=== PATIENT | female | born 1940 | race Caucasian/White ===

== ENCOUNTER 2017-01-26 08:00 | Outpatient (CLI) | payer BC | END 2017-01-26 08:01 | disposition home or self-care (01) | LOC: BICMAMMO 08:00 | PROVIDERS: ATTEND Family Medicine | DX: M81.0 Age-related osteoporosis without current pathological fracture (principal); M85.88 Other specified disorders of bone density and structure, other site | CPT/HCPCS: 77080 ==

== ENCOUNTER 2018-01-27 08:10 | Outpatient (CLI) | payer BC ==
--- NOTE | 2018-01-27 11:11 | BD ---
DEXA BONE DENSITY STUDY: Date: 01/27/18 HISTORY: Postmenopausal. FINDINGS: Lumbar Spine: BMD (g/cm2) L1 0.643 T-Score: -3.2 L2 0.661 T-Score: -3.3 L3 0.812 T-Score: -2.5 L4 1.002 T-Score: -0.5 Total 0.792 T-Score: -2.3 Left Femoral Neck: 0.682 T-Score: -1.5 Total Femur: 0.831 T-Score: -0.9 IMPRESSION: 1. Osteopenia of the lumbar spine. The T-Score values border on osteoporosis range with L1 and L2 fa lling within the osteoporosis range. 2. Osteopenia of the left femoral neck. 3. 10 year fracture risk for major osteoporotic fracture is 13% and for hip fracture is 3%. These fr acture probabilities are calculated for an untreated patient. POS: [facility]
== END 2018-01-27 08:11 | disposition home or self-care (01) ==
LOC: BICMAMMO 08:10
PROVIDERS: ATTEND Family Medicine
DX: Z12.31 Encounter for screening mammogram for malignant neoplasm of breast (principal); Z13.820 Encounter for screening for osteoporosis; M85.89 Other specified disorders of bone density and structure, multiple sites
CPT/HCPCS: 77063; 77067; 77080

== ENCOUNTER 2021-01-21 09:20 | Outpatient (CLI) | payer BC | END 2021-01-21 09:21 | disposition home or self-care (01) | LOC: BICMAMMO 09:20 | PROVIDERS: ATTEND Family Medicine | DX: M81.6 Localized osteoporosis [Lequesne] (principal); M85.851 Other specified disorders of bone density and structure, right thigh; M85.852 Other specified disorders of bone density and structure, left thigh | CPT/HCPCS: 77080 ==

== ENCOUNTER 2021-03-16 07:24 | Inpatient (IN) | payer MEDICARE, BC ==
[2021-03-16 09:47] LABS: #Lymphocytes 0.8 thou/uL (1.20-3.40); #Monocytes 0.2 thou/uL (0.11-0.59); %Basophils 0.7 % (0.0-1.0); %Eosinophils 0.2 % (0.0-10.0); %Lymphocytes 25.1 % (21.0-51.0); %Monocytes 5.7 % (0.0-10.0); %Neutrophils 68.3 % (42.0-75.0); Hemoglobin 14.3 g/dL (12.0-16.0); Mean Corpuscular HGB CONC 32.2 g/dL (32.0-36.0); Mean Corpuscular Hemoglobin 30.4 pg (27.0-31.0); Mean Corpuscular Volume 94.6 fL (78.0-98.0); Mean Platelet Volume 7.4 fL (7.4-10.4); Platelet Count 145 thou/uL (130-400); RBC Distribution Width 11.9 % (11.5-14.5); Red Blood Cell (RBC) Count 4.69 mill/uL (4.20-5.40)
[2021-03-16] MEDS ORDERED: Iopamidol 370 76% 100 ML VIAL ONE (10:17)
[2021-03-16 10:18] LABS: ALT (SGPT) 34 U/L (8-55); AST (SGOT) 72 U/L (5-34); Albumin 3.5 g/dL (3.4-4.8); Alkaline Phosphatase 73 U/L (40-110); Anion Gap 14 mmol/L (10-20); BUN (Urea Nitrogen) 9 mg/dL (9.8-20.1); Bilirubin, Total 0.4 mg/dL (0.2-1.2); Calc. Creatinine Clearance 0 mL/min (70-130); Calcium 8.1 mg/dL (7.8-10.44); Carbon Dioxide 24 mmol/L (23-31); Chloride 99 mmol/L (98-107); Globulin 2.8 g/dL (2.4-3.5); Glucose 123 mg/dL (83-110); Magnesium 2.1 mg/dL (1.6-2.6); Protein, Total 6.3 g/dL (5.8-8.1); Sodium 133 mmol/L (136-145)
[2021-03-16] MEDS ORDERED: Ondansetron PF 4 MG/2 ML Vial IVP PRN (12:28)
[2021-03-16] MEDS ORDERED: Bisacodyl 10 MG SUPP PR PRN (12:28)
[2021-03-16] MEDS ORDERED: Dexamethasone 4 mg/ml Vial SLOW IVP SCH (12:45)
[2021-03-16] MEDS ORDERED: Albuterol 200 PUFF (6.7GM INHALER) ONE (13:08)
[2021-03-16] MEDS ORDERED: REMDESIVIR 200 MG in Sodium Chloride 0.9% 250 ML 210 ML IV SCH (14:00)
[2021-03-16 14:06] LABS: SARS-CoV-2 NAA Rapid Test DETECTED (NotDetected)
[2021-03-16] MEDS: Dexamethasone 4 mg/ml Vial SLOW IVP SCH (20:00)
[2021-03-16] MEDS: Famotidine 20 MG TAB PO SCH (20:00)
[2021-03-16] MEDS: Albuterol 200 PUFF (6.7GM INHALER) INH SCH (20:00)
[2021-03-17] MEDS: Albuterol 200 PUFF (6.7GM INHALER) INH SCH ×4 (01:06→20:02)
[2021-03-17] MEDS: Guaifenesin DM 100-10/5 ML UDCUP PO PRN ×2 (04:25→10:58)
[2021-03-17 06:55] LABS: #Lymphocytes 0.7 thou/uL (1.20-3.40); #Monocytes 0.2 thou/uL (0.11-0.59); #Neutrophils 2.7 thou/uL (1.40-6.50); %Eosinophils 0.1 % (0.0-10.0); %Lymphocytes 19.4 % (21.0-51.0); %Monocytes 6.3 % (0.0-10.0); %Neutrophils 74.2 % (42.0-75.0); Mean Corpuscular HGB CONC 32.4 g/dL (32.0-36.0); Mean Corpuscular Hemoglobin 30.4 pg (27.0-31.0); Mean Corpuscular Volume 93.7 fL (78.0-98.0); Mean Platelet Volume 7.6 fL (7.4-10.4); Platelet Count 163 thou/uL (130-400); RBC Distribution Width 11.9 % (11.5-14.5); Red Blood Cell (RBC) Count 4.62 mill/uL (4.20-5.40); White Blood Cell (WBC) Count 3.6 thou/uL (4.8-10.8)
[2021-03-17 07:34] LABS: ALT (SGPT) 34 U/L (8-55); AST (SGOT) 72 U/L (5-34); Albumin 3.2 g/dL (3.4-4.8); Alkaline Phosphatase 68 U/L (40-110); Anion Gap 17 mmol/L (10-20); BUN (Urea Nitrogen) 12 mg/dL (9.8-20.1); Bilirubin, Total 0.3 mg/dL (0.2-1.2); Calc. Creatinine Clearance 44 mL/min (70-130); Calcium 8.4 mg/dL (7.8-10.44); Carbon Dioxide 16 mmol/L (23-31); Chloride 103 mmol/L (98-107); Globulin 3.5 g/dL (2.4-3.5); Glucose 211 mg/dL (83-110); Potassium 4.1 mmol/L (3.5-5.1); Protein, Total 6.7 g/dL (5.8-8.1); Sodium 132 mmol/L (136-145)
[2021-03-17] MEDS: Ascorbic Acid 500 mg Chewable Tablet PO SCH (08:35)
[2021-03-17] MEDS: Famotidine 20 MG TAB PO SCH ×2 (08:35→20:02)
[2021-03-17] MEDS: Zinc Sulfate 220 MG CAP PO SCH (08:35)
[2021-03-17] MEDS: Dexamethasone 4 mg/ml Vial SLOW IVP SCH ×2 (08:36→20:02)
[2021-03-17] MEDS ORDERED: Enoxaparin Sodium 40 MG/0.4 ML SYRINGE SC SCH (09:00)
[2021-03-17] MEDS: REMDESIVIR 100 MG in Sodium Chloride 0.9% 250 ML 230 ML IV SCH (11:19)
[2021-03-17] MEDS ORDERED: Dexamethasone 4 mg/ml Vial ONE (19:38)
[2021-03-17] MEDS: Enoxaparin Sodium 40 MG/0.4 ML SYRINGE SC SCH (20:02)
[2021-03-18] MEDS: Albuterol 200 PUFF (6.7GM INHALER) INH SCH ×4 (01:00→20:37)
[2021-03-18 05:00] LABS: Actual Bicarbonate (HCO3a) 20.8 mEq/L (22-28); Base Excess (BEa) -2.2 mEq/L (-2.0 to +3.0); CO2 Tension 30.9 mmHg (35.0-45.0); Calcium, Ionized (arterial) 1.14 mmol/L (1.12-1.30); Carboxyhemoglobin (COHb) 0.5 gm% (0.0-3.0); Hemoglobin (Hb) 14.7 g/dL (12.0-16.0); Potassium - ABG Lab 3.72 mmol/L (3.70-5.30); pH, Arterial 7.45 (7.35-7.45)
[2021-03-18 05:02] LABS: O2 Tension (PaO2), arterial 56.9 mmHg (> 60.0)
[2021-03-18 05:03] LABS: ALV-art Gradient 367.925 mmHg (0-20); Puncture Site RBA
[2021-03-18] MEDS: REMDESIVIR 100 MG in Sodium Chloride 0.9% 250 ML 230 ML IV SCH (08:38)
[2021-03-18] MEDS: Enoxaparin Sodium 40 MG/0.4 ML SYRINGE SC SCH ×2 (08:39→20:13)
[2021-03-18] MEDS: Guaifenesin DM 100-10/5 ML UDCUP PO PRN ×2 (08:39→20:15)
[2021-03-18] MEDS: Acetaminophen 325 MG TAB PO PRN ×2 (08:39→13:09)
[2021-03-18] MEDS: Ascorbic Acid 500 mg Chewable Tablet PO SCH (08:39)
[2021-03-18] MEDS: Famotidine 20 MG TAB PO SCH ×2 (08:39→20:12)
[2021-03-18] MEDS: BARICITINIB 2 MG TAB PO SCH (08:39)
[2021-03-18] MEDS: guaiFENesin/DM ER PO PRN ×2 (08:40→20:12)
[2021-03-18] MEDS: Dexamethasone 4 mg/ml Vial SLOW IVP SCH ×2 (08:40→20:12)
[2021-03-18] MEDS: Zinc Sulfate 220 MG CAP PO SCH (08:41)
[2021-03-19] MEDS: Acetaminophen 325 MG TAB PO PRN ×3 (00:59→22:42)
[2021-03-19] MEDS: Albuterol 200 PUFF (6.7GM INHALER) INH SCH ×4 (01:00→18:09)
[2021-03-19 07:28] LABS: ALT (SGPT) 34 U/L (8-55); AST (SGOT) 56 U/L (5-34); Alkaline Phosphatase 102 U/L (40-110); Anion Gap 12 mmol/L (10-20); BUN (Urea Nitrogen) 26 mg/dL (9.8-20.1); Bilirubin, Total 0.4 mg/dL (0.2-1.2); Calc. Creatinine Clearance 42 mL/min (70-130); Calcium 8.4 mg/dL (7.8-10.44); Carbon Dioxide 21 mmol/L (23-31); Chloride 105 mmol/L (98-107); Globulin 2.9 g/dL (2.4-3.5); Glucose 377 mg/dL (83-110); Potassium 3.9 mmol/L (3.5-5.1); Protein, Total 5.9 g/dL (5.8-8.1); Sodium 134 mmol/L (136-145)
[2021-03-19 07:38] LABS: #Monocytes 0.5 thou/uL (0.11-0.59); #Neutrophils 6.8 thou/uL (1.40-6.50); %Eosinophils 0.1 % (0.0-10.0); %Lymphocytes 11.8 % (21.0-51.0); %Monocytes 6.4 % (0.0-10.0); %Neutrophils 81.7 % (42.0-75.0); Hemoglobin 13.9 g/dL (12.0-16.0); Mean Corpuscular HGB CONC 34.4 g/dL (32.0-36.0); Mean Corpuscular Hemoglobin 31.8 pg (27.0-31.0); Mean Corpuscular Volume 92.3 fL (78.0-98.0); Mean Platelet Volume 7.7 fL (7.4-10.4); Platelet Count 224 thou/uL (130-400); RBC Distribution Width 12.1 % (11.5-14.5); Red Blood Cell (RBC) Count 4.36 mill/uL (4.20-5.40); White Blood Cell (WBC) Count 8.3 thou/uL (4.8-10.8)
[2021-03-19] MEDS ORDERED: Dextrose 5% in Water 1,000 ML IV PRN (08:51)
[2021-03-19] MEDS: Zinc Sulfate 220 MG CAP PO SCH (09:06)
[2021-03-19] MEDS: Famotidine 20 MG TAB PO SCH ×2 (09:06→20:25)
[2021-03-19] MEDS: Ascorbic Acid 500 mg Chewable Tablet PO SCH (09:06)
[2021-03-19] MEDS: Enoxaparin Sodium 40 MG/0.4 ML SYRINGE SC SCH ×2 (09:07→20:25)
[2021-03-19] MEDS: BARICITINIB 2 MG TAB PO SCH (09:08)
[2021-03-19] MEDS: Dexamethasone 4 mg/ml Vial SLOW IVP SCH (09:09)
[2021-03-19] MEDS: Lantus 1000 UNITS/10 ML VIAL SC SCH ×2 (10:17→20:25)
[2021-03-19] MEDS: REMDESIVIR 100 MG in Sodium Chloride 0.9% 250 ML 230 ML IV SCH (10:18)
[2021-03-19] MEDS: HumaLOG 300 UNITS/3 ML VIAL SC PRN ×4 (10:19→20:27)
[2021-03-19] MEDS ORDERED: Melatonin 3 MG TAB PO SCH (20:52)
[2021-03-20] MEDS: Albuterol 200 PUFF (6.7GM INHALER) INH SCH ×4 (01:07→17:56)
[2021-03-20] MEDS: HumaLOG 300 UNITS/3 ML VIAL SC PRN ×5 (05:48→21:28)
[2021-03-20] MEDS: BARICITINIB 2 MG TAB PO SCH (08:57)
[2021-03-20] MEDS: Famotidine 20 MG TAB PO SCH ×2 (08:57→21:24)
[2021-03-20] MEDS: Enoxaparin Sodium 40 MG/0.4 ML SYRINGE SC SCH ×2 (08:58→21:25)
[2021-03-20] MEDS: Dexamethasone 4 mg/ml Vial SLOW IVP SCH (08:58)
[2021-03-20] MEDS: Ascorbic Acid 500 mg Chewable Tablet PO SCH (08:58)
[2021-03-20] MEDS: Zinc Sulfate 220 MG CAP PO SCH (08:58)
[2021-03-20] MEDS: Lantus 1000 UNITS/10 ML VIAL SC SCH ×2 (08:59→21:28)
[2021-03-20] MEDS: REMDESIVIR 100 MG in Sodium Chloride 0.9% 250 ML 230 ML IV SCH (10:50)
[2021-03-20] MEDS ORDERED: Melatonin 3 MG TAB PO SCH (18:46)
[2021-03-20] MEDS ORDERED: Docusate 100 MG CAP PO SCH (18:47)
[2021-03-20] MEDS: Guaifenesin DM 100-10/5 ML UDCUP PO PRN (21:27)
[2021-03-21] MEDS: Albuterol 200 PUFF (6.7GM INHALER) INH SCH ×4 (01:40→18:57)
[2021-03-21 07:35] LABS: #Lymphocytes 0.9 thou/uL (1.20-3.40); #Monocytes 0.6 thou/uL (0.11-0.59); #Neutrophils 6.7 thou/uL (1.40-6.50); %Eosinophils 0.1 % (0.0-10.0); %Lymphocytes 10.5 % (21.0-51.0); %Monocytes 7.2 % (0.0-10.0); %Neutrophils 82.2 % (42.0-75.0); Hemoglobin 14.1 g/dL (12.0-16.0); Mean Corpuscular HGB CONC 33.1 g/dL (32.0-36.0); Mean Corpuscular Volume 93.6 fL (78.0-98.0); Mean Platelet Volume 7.4 fL (7.4-10.4); Platelet Count 276 thou/uL (130-400); RBC Distribution Width 11.9 % (11.5-14.5); Red Blood Cell (RBC) Count 4.55 mill/uL (4.20-5.40); White Blood Cell (WBC) Count 8.2 thou/uL (4.8-10.8)
[2021-03-21 07:44] LABS: ALT (SGPT) 30 U/L (8-55); AST (SGOT) 44 U/L (5-34); Albumin 2.8 g/dL (3.4-4.8); Alkaline Phosphatase 111 U/L (40-110); Anion Gap 13 mmol/L (10-20); BUN (Urea Nitrogen) 21 mg/dL (9.8-20.1); Bilirubin, Total 0.7 mg/dL (0.2-1.2); Calc. Creatinine Clearance 45 mL/min (70-130); Calcium 8.2 mg/dL (7.8-10.44); Carbon Dioxide 20 mmol/L (23-31); Chloride 104 mmol/L (98-107); Globulin 2.9 g/dL (2.4-3.5); Glucose 273 mg/dL (83-110); Potassium 3.2 mmol/L (3.5-5.1); Protein, Total 5.7 g/dL (5.8-8.1); Sodium 134 mmol/L (136-145)
[2021-03-21] MEDS: Zinc Sulfate 220 MG CAP PO SCH (09:34)
[2021-03-21] MEDS: Famotidine 20 MG TAB PO SCH ×2 (09:35→22:11)
[2021-03-21] MEDS: BARICITINIB 2 MG TAB PO SCH (09:35)
[2021-03-21] MEDS: Ascorbic Acid 500 mg Chewable Tablet PO SCH (09:35)
[2021-03-21] MEDS: Dexamethasone 4 mg/ml Vial SLOW IVP SCH (09:36)
[2021-03-21] MEDS: Enoxaparin Sodium 40 MG/0.4 ML SYRINGE SC SCH ×2 (09:40→22:12)
[2021-03-21] MEDS: Lantus 1000 UNITS/10 ML VIAL SC SCH ×2 (09:41→22:10)
[2021-03-21] MEDS: Acetaminophen 325 MG TAB PO PRN (11:25)
[2021-03-21] MEDS: HumaLOG 300 UNITS/3 ML VIAL SC PRN ×2 (13:23→17:11)
[2021-03-21] MEDS ORDERED: BARICITINIB 2 MG TAB PO SCH (14:00)
[2021-03-21] MEDS: Potassium Chloride 20 MEQ TAB PO SCH ×2 (17:07→22:11)
[2021-03-21] MEDS: Guaifenesin DM 100-10/5 ML UDCUP PO PRN ×2 (17:13→22:11)
[2021-03-21] MEDS ORDERED: Melatonin 3 MG TAB PO SCH (22:30)
[2021-03-22] MEDS: Albuterol 200 PUFF (6.7GM INHALER) INH SCH ×5 (01:38→19:18)
[2021-03-22] MEDS: Guaifenesin DM 100-10/5 ML UDCUP PO PRN ×3 (06:16→21:37)
[2021-03-22] MEDS: Acetaminophen 325 MG TAB PO PRN ×3 (06:16→21:38)
[2021-03-22] MEDS: Ascorbic Acid 500 mg Chewable Tablet PO SCH (09:24)
[2021-03-22] MEDS: Zinc Sulfate 220 MG CAP PO SCH (09:24)
[2021-03-22] MEDS: BARICITINIB 2 MG TAB PO SCH (09:24)
[2021-03-22] MEDS: Famotidine 20 MG TAB PO SCH ×2 (09:24→21:37)
[2021-03-22] MEDS: Enoxaparin Sodium 40 MG/0.4 ML SYRINGE SC SCH ×2 (09:25→21:38)
[2021-03-22] MEDS: Dexamethasone 4 mg/ml Vial SLOW IVP SCH (09:25)
[2021-03-22] MEDS: Lantus 1000 UNITS/10 ML VIAL SC SCH ×2 (09:26→21:38)
[2021-03-22] MEDS: HumaLOG 300 UNITS/3 ML VIAL SC PRN ×2 (12:54→17:48)
[2021-03-22] MEDS ORDERED: Melatonin 3 MG TAB PO SCH (20:30)
[2021-03-23] MEDS: Albuterol 200 PUFF (6.7GM INHALER) INH SCH ×4 (02:16→19:42)
[2021-03-23] MEDS: Acetaminophen 325 MG TAB PO PRN ×4 (04:28→19:37)
[2021-03-23] MEDS: Guaifenesin DM 100-10/5 ML UDCUP PO PRN ×3 (04:28→19:37)
[2021-03-23] MEDS: Dexamethasone 4 mg/ml Vial SLOW IVP SCH (09:17)
[2021-03-23] MEDS: Zinc Sulfate 220 MG CAP PO SCH (09:18)
[2021-03-23] MEDS: Lantus 1000 UNITS/10 ML VIAL SC SCH ×2 (09:18→21:23)
[2021-03-23] MEDS: Ascorbic Acid 500 mg Chewable Tablet PO SCH (09:19)
[2021-03-23] MEDS: Famotidine 20 MG TAB PO SCH (09:19)
[2021-03-23] MEDS: BARICITINIB 2 MG TAB PO SCH (09:19)
[2021-03-23] MEDS: Enoxaparin Sodium 40 MG/0.4 ML SYRINGE SC SCH ×2 (09:19→21:24)
[2021-03-23] MEDS: HumaLOG 300 UNITS/3 ML VIAL SC PRN (12:35)
[2021-03-23] MEDS ORDERED: Mag-Al Plus 1200 MG/1200 MG/120 MG/30 ML UDCUP PO PRN (18:40)
[2021-03-23] MEDS ORDERED: Melatonin 3 MG TAB PO SCH (20:15)
[2021-03-23] MEDS: Senokot S 8.6-50 MG TAB PO SCH (21:23)
[2021-03-23] MEDS ORDERED: Lorazepam 0.5 MG TAB PO SCH (23:30)
[2021-03-24] MEDS: Albuterol 200 PUFF (6.7GM INHALER) INH SCH ×4 (03:09→20:29)
[2021-03-24] MEDS: Guaifenesin DM 100-10/5 ML UDCUP PO PRN ×3 (03:10→18:40)
[2021-03-24] MEDS: Acetaminophen 325 MG TAB PO PRN (03:10)
[2021-03-24 06:40] LABS: #Lymphocytes 0.6 thou/uL (1.20-3.40); #Monocytes 0.3 thou/uL (0.11-0.59); %Basophils 0.8 % (0.0-1.0); %Eosinophils 0.4 % (0.0-10.0); %Lymphocytes 11.9 % (21.0-51.0); %Monocytes 6.4 % (0.0-10.0); %Neutrophils 80.5 % (42.0-75.0); Hemoglobin 13.6 g/dL (12.0-16.0); Mean Corpuscular HGB CONC 34.8 g/dL (32.0-36.0); Mean Corpuscular Hemoglobin 32.3 pg (27.0-31.0); Mean Corpuscular Volume 92.9 fL (78.0-98.0); Mean Platelet Volume 7.3 fL (7.4-10.4); Platelet Count 263 thou/uL (130-400); RBC Distribution Width 11.9 % (11.5-14.5); Red Blood Cell (RBC) Count 4.19 mill/uL (4.20-5.40)
[2021-03-24 06:58] LABS: Phosphorus 3.9 mg/dL (2.3-4.7)
[2021-03-24 07:00] LABS: ALT (SGPT) 29 U/L (8-55); AST (SGOT) 37 U/L (5-34); Albumin 2.7 g/dL (3.4-4.8); Alkaline Phosphatase 102 U/L (40-110); Anion Gap 9 mmol/L (10-20); BUN (Urea Nitrogen) 15 mg/dL (9.8-20.1); Bilirubin, Direct 0.4 mg/dL (0.1-0.3); Bilirubin, Total 0.9 mg/dL (0.2-1.2); Calc. Creatinine Clearance 53 mL/min (70-130); Calcium 8.2 mg/dL (7.8-10.44); Carbon Dioxide 25 mmol/L (23-31); Chloride 104 mmol/L (98-107); Glucose 77 mg/dL (83-110); Magnesium 2.3 mg/dL (1.6-2.6); Potassium 3.7 mmol/L (3.5-5.1); Protein, Total 5.6 g/dL (5.8-8.1); Sodium 134 mmol/L (136-145)
[2021-03-24] MEDS: Ascorbic Acid 500 mg Chewable Tablet PO SCH (08:32)
[2021-03-24] MEDS: BARICITINIB 2 MG TAB PO SCH (08:32)
[2021-03-24] MEDS: Folic Acid 1 MG TAB PO SCH (08:32)
[2021-03-24] MEDS: Dexamethasone 4 mg/ml Vial SLOW IVP SCH (08:32)
[2021-03-24] MEDS: Senokot S 8.6-50 MG TAB PO SCH ×2 (08:32→20:27)
[2021-03-24] MEDS: guaiFENesin ER 600 MG TAB PO SCH ×2 (08:32→20:27)
[2021-03-24] MEDS: Zinc Sulfate 220 MG CAP PO SCH (08:32)
[2021-03-24] MEDS: Polyethylene Glycol 3350 17 GM Packet PO SCH (08:32)
[2021-03-24] MEDS: Enoxaparin Sodium 40 MG/0.4 ML SYRINGE SC SCH ×2 (08:33→20:27)
[2021-03-24] MEDS: Cyanocobalamin (Vitamin B-12) 1,000 MCG TAB PO SCH (08:33)
[2021-03-24] MEDS: Multivit, Therapeutic 1 TAB PO SCH (08:33)
[2021-03-24] MEDS: Lantus 1000 UNITS/10 ML VIAL SC SCH ×2 (08:33→20:27)
[2021-03-24] MEDS: HumaLOG 300 UNITS/3 ML VIAL SC PRN ×2 (12:33→17:31)
[2021-03-25] MEDS: Acetaminophen 325 MG TAB PO PRN ×2 (02:22→21:07)
[2021-03-25] MEDS: Albuterol 200 PUFF (6.7GM INHALER) INH SCH ×4 (02:23→20:54)
[2021-03-25] MEDS: Dextrose 50% Abboject 50 ML SYRINGE SLOW IVP PRN (04:46)
[2021-03-25] MEDS: Enoxaparin Sodium 40 MG/0.4 ML SYRINGE SC SCH ×2 (08:11→20:52)
[2021-03-25] MEDS: Senokot S 8.6-50 MG TAB PO SCH ×2 (08:11→20:52)
[2021-03-25] MEDS: guaiFENesin ER 600 MG TAB PO SCH ×2 (08:12→20:52)
[2021-03-25] MEDS: BARICITINIB 2 MG TAB PO SCH (08:12)
[2021-03-25] MEDS: Multivit, Therapeutic 1 TAB PO SCH (08:12)
[2021-03-25] MEDS: Folic Acid 1 MG TAB PO SCH (08:13)
[2021-03-25] MEDS: Polyethylene Glycol 3350 17 GM Packet PO SCH (08:13)
[2021-03-25] MEDS: Ascorbic Acid 500 mg Chewable Tablet PO SCH (08:13)
[2021-03-25] MEDS: Zinc Sulfate 220 MG CAP PO SCH (08:13)
[2021-03-25] MEDS: Cyanocobalamin (Vitamin B-12) 1,000 MCG TAB PO SCH (08:13)
[2021-03-25] MEDS: Dexamethasone 4 mg/ml Vial SLOW IVP SCH (08:13)
[2021-03-25] MEDS: Lantus 1000 UNITS/10 ML VIAL SC SCH (08:14)
[2021-03-25] MEDS ORDERED: Dexamethasone 4 mg/ml Vial ONE (08:21)
[2021-03-25] MEDS: HumaLOG 300 UNITS/3 ML VIAL SC PRN ×2 (12:44→16:50)
[2021-03-25] MEDS: Guaifenesin DM 100-10/5 ML UDCUP PO PRN ×2 (14:55→21:07)
[2021-03-25] MEDS ORDERED: Polyethylene Glycol 3350 17 GM Packet PO PRN (22:55)
[2021-03-26] MEDS: Albuterol 200 PUFF (6.7GM INHALER) INH SCH ×4 (01:31→20:35)
[2021-03-26] MEDS: BARICITINIB 2 MG TAB PO SCH (08:38)
[2021-03-26] MEDS: Polyethylene Glycol 3350 17 GM Packet PO SCH (08:39)
[2021-03-26] MEDS: Ascorbic Acid 500 mg Chewable Tablet PO SCH (08:39)
[2021-03-26] MEDS: Dexamethasone 4 mg/ml Vial SLOW IVP SCH (08:39)
[2021-03-26] MEDS: Folic Acid 1 MG TAB PO SCH (08:40)
[2021-03-26] MEDS: Multivit, Therapeutic 1 TAB PO SCH (08:40)
[2021-03-26] MEDS: guaiFENesin ER 600 MG TAB PO SCH ×2 (08:40→20:36)
[2021-03-26] MEDS: Zinc Sulfate 220 MG CAP PO SCH (08:40)
[2021-03-26] MEDS: Cyanocobalamin (Vitamin B-12) 1,000 MCG TAB PO SCH (08:42)
[2021-03-26] MEDS: Enoxaparin Sodium 40 MG/0.4 ML SYRINGE SC SCH ×2 (08:44→20:36)
[2021-03-26] MEDS ORDERED: Senokot S 8.6-50 MG TAB PO SCH (09:00)
[2021-03-26] MEDS: Lantus 1000 UNITS/10 ML VIAL SC SCH (09:44)
[2021-03-26] MEDS: HumaLOG 300 UNITS/3 ML VIAL SC PRN ×3 (12:02→20:37)
[2021-03-26] MEDS: Docusate 100 MG CAP PO SCH (20:36)
[2021-03-27] MEDS: hydrOXYzine 10 MG TAB PO PRN (01:40)
[2021-03-27] MEDS: Albuterol 200 PUFF (6.7GM INHALER) INH SCH ×4 (01:42→17:59)
[2021-03-27] MEDS: Dextrose 50% Abboject 50 ML SYRINGE SLOW IVP PRN (04:34)
[2021-03-27 08:14] LABS: #Eosinphils 0.1 thou/uL (0.0-0.7); #Lymphocytes 0.7 thou/uL (1.20-3.40); #Monocytes 0.1 thou/uL (0.11-0.59); #Neutrophils 8.1 thou/uL (1.40-6.50); %Basophils 0.1 % (0.0-1.0); %Eosinophils 0.6 % (0.0-10.0); %Lymphocytes 7.8 % (21.0-51.0); %Monocytes 1.2 % (0.0-10.0); %Neutrophils 90.3 % (42.0-75.0); Hemoglobin 12.8 g/dL (12.0-16.0); Mean Corpuscular HGB CONC 34.7 g/dL (32.0-36.0); Mean Corpuscular Hemoglobin 32.7 pg (27.0-31.0); Mean Corpuscular Volume 94.2 fL (78.0-98.0); Mean Platelet Volume 7.6 fL (7.4-10.4); Platelet Count 244 thou/uL (130-400); RBC Distribution Width 12.2 % (11.5-14.5); Red Blood Cell (RBC) Count 3.91 mill/uL (4.20-5.40)
[2021-03-27 08:24] LABS: ALT (SGPT) 48 U/L (8-55); AST (SGOT) 60 U/L (5-34); Albumin 2.5 g/dL (3.4-4.8); Alkaline Phosphatase 147 U/L (40-110); Anion Gap 11 mmol/L (10-20); BUN (Urea Nitrogen) 20 mg/dL (9.8-20.1); Bilirubin, Direct 0.3 mg/dL (0.1-0.3); Bilirubin, Total 0.5 mg/dL (0.2-1.2); Calc. Creatinine Clearance 47 mL/min (70-130); Calcium 8.2 mg/dL (7.8-10.44); Carbon Dioxide 23 mmol/L (23-31); Chloride 103 mmol/L (98-107); Glucose 191 mg/dL (83-110); Potassium 3.8 mmol/L (3.5-5.1); Protein, Total 5.7 g/dL (5.8-8.1); Sodium 133 mmol/L (136-145)
[2021-03-27] MEDS ORDERED: Lantus 1000 UNITS/10 ML VIAL SC SCH (09:00)
[2021-03-27] MEDS: BARICITINIB 2 MG TAB PO SCH (09:12)
[2021-03-27] MEDS: Multivit, Therapeutic 1 TAB PO SCH (09:12)
[2021-03-27] MEDS: Docusate 100 MG CAP PO SCH ×2 (09:13→20:29)
[2021-03-27] MEDS: Folic Acid 1 MG TAB PO SCH (09:13)
[2021-03-27] MEDS: Cyanocobalamin (Vitamin B-12) 1,000 MCG TAB PO SCH (09:14)
[2021-03-27] MEDS: guaiFENesin ER 600 MG TAB PO SCH ×2 (09:14→20:29)
[2021-03-27] MEDS: Zinc Sulfate 220 MG CAP PO SCH (09:14)
[2021-03-27] MEDS: Ascorbic Acid 500 mg Chewable Tablet PO SCH (09:14)
[2021-03-27] MEDS: Polyethylene Glycol 3350 17 GM Packet PO SCH (09:15)
[2021-03-27] MEDS: Dexamethasone 4 mg/ml Vial SLOW IVP SCH (09:15)
[2021-03-27] MEDS: Enoxaparin Sodium 40 MG/0.4 ML SYRINGE SC SCH ×2 (09:15→20:29)
[2021-03-27] MEDS: HumaLOG 300 UNITS/3 ML VIAL SC PRN ×4 (09:34→20:43)
[2021-03-28] MEDS: Albuterol 200 PUFF (6.7GM INHALER) INH SCH ×4 (01:00→20:44)
[2021-03-28] MEDS: Ascorbic Acid 500 mg Chewable Tablet PO SCH (08:34)
[2021-03-28] MEDS: Cyanocobalamin (Vitamin B-12) 1,000 MCG TAB PO SCH (08:34)
[2021-03-28] MEDS: Zinc Sulfate 220 MG CAP PO SCH (08:34)
[2021-03-28] MEDS: BARICITINIB 2 MG TAB PO SCH (08:34)
[2021-03-28] MEDS: Folic Acid 1 MG TAB PO SCH (08:34)
[2021-03-28] MEDS: Dexamethasone 4 mg/ml Vial SLOW IVP SCH (08:34)
[2021-03-28] MEDS: Multivit, Therapeutic 1 TAB PO SCH (08:34)
[2021-03-28] MEDS: guaiFENesin ER 600 MG TAB PO SCH ×2 (08:34→20:43)
[2021-03-28] MEDS: Docusate 100 MG CAP PO SCH ×2 (08:34→20:42)
[2021-03-28] MEDS: Enoxaparin Sodium 40 MG/0.4 ML SYRINGE SC SCH ×2 (08:35→20:43)
[2021-03-28] MEDS: Polyethylene Glycol 3350 17 GM Packet PO SCH (08:35)
[2021-03-28] MEDS: HumaLOG 300 UNITS/3 ML VIAL SC PRN ×2 (13:43→17:04)
[2021-03-29] MEDS: Albuterol 200 PUFF (6.7GM INHALER) INH SCH ×4 (00:07→19:57)
[2021-03-29] MEDS: Dexamethasone 4 mg/ml Vial SLOW IVP SCH (08:11)
[2021-03-29] MEDS: Enoxaparin Sodium 40 MG/0.4 ML SYRINGE SC SCH ×2 (08:11→19:59)
[2021-03-29] MEDS: Polyethylene Glycol 3350 17 GM Packet PO SCH (08:11)
[2021-03-29] MEDS: BARICITINIB 2 MG TAB PO SCH (08:11)
[2021-03-29] MEDS: Folic Acid 1 MG TAB PO SCH (08:12)
[2021-03-29] MEDS: Cyanocobalamin (Vitamin B-12) 1,000 MCG TAB PO SCH (08:12)
[2021-03-29] MEDS: Docusate 100 MG CAP PO SCH (08:12)
[2021-03-29] MEDS: Ascorbic Acid 500 mg Chewable Tablet PO SCH (08:12)
[2021-03-29] MEDS: Zinc Sulfate 220 MG CAP PO SCH (08:12)
[2021-03-29] MEDS: guaiFENesin ER 600 MG TAB PO SCH ×2 (08:12→19:57)
[2021-03-29] MEDS: Multivit, Therapeutic 1 TAB PO SCH (08:12)
[2021-03-29] MEDS: HumaLOG 300 UNITS/3 ML VIAL SC PRN ×2 (12:04→17:42)
[2021-03-30] MEDS: Albuterol 200 PUFF (6.7GM INHALER) INH SCH ×4 (00:20→18:09)
[2021-03-30 07:17] LABS: ALT (SGPT) 45 U/L (8-55); AST (SGOT) 50 U/L (5-34); Albumin 2.7 g/dL (3.4-4.8); Alkaline Phosphatase 173 U/L (40-110); Anion Gap 12 mmol/L (10-20); BUN (Urea Nitrogen) 21 mg/dL (9.8-20.1); Bilirubin, Direct 0.2 mg/dL (0.1-0.3); Bilirubin, Total 0.5 mg/dL (0.2-1.2); Calc. Creatinine Clearance 50 mL/min (70-130); Calcium 8.5 mg/dL (7.8-10.44); Carbon Dioxide 21 mmol/L (23-31); Chloride 105 mmol/L (98-107); Glucose 151 mg/dL (83-110); Sodium 134 mmol/L (136-145)
[2021-03-30] MEDS: Cyanocobalamin (Vitamin B-12) 1,000 MCG TAB PO SCH (08:32)
[2021-03-30] MEDS: Dexamethasone 4 mg/ml Vial SLOW IVP SCH (08:32)
[2021-03-30] MEDS: BARICITINIB 2 MG TAB PO SCH (08:32)
[2021-03-30] MEDS: Ascorbic Acid 500 mg Chewable Tablet PO SCH (08:32)
[2021-03-30] MEDS: Zinc Sulfate 220 MG CAP PO SCH (08:32)
[2021-03-30] MEDS: Enoxaparin Sodium 40 MG/0.4 ML SYRINGE SC SCH ×2 (08:32→20:26)
[2021-03-30] MEDS: guaiFENesin ER 600 MG TAB PO SCH ×2 (08:32→20:26)
[2021-03-30] MEDS: Multivit, Therapeutic 1 TAB PO SCH (08:32)
[2021-03-30] MEDS: Folic Acid 1 MG TAB PO SCH (08:32)
[2021-03-30] MEDS: HumaLOG 300 UNITS/3 ML VIAL SC PRN ×2 (12:07→18:06)
[2021-03-30] MEDS: Acetaminophen 325 MG TAB PO PRN (23:59)
[2021-03-31] MEDS: Albuterol 200 PUFF (6.7GM INHALER) INH SCH ×4 (01:57→19:39)
[2021-03-31] MEDS: Acetaminophen 325 MG TAB PO PRN ×2 (04:55→21:37)
[2021-03-31] MEDS: Cyanocobalamin (Vitamin B-12) 1,000 MCG TAB PO SCH (08:11)
[2021-03-31] MEDS: Multivit, Therapeutic 1 TAB PO SCH (08:11)
[2021-03-31] MEDS: Zinc Sulfate 220 MG CAP PO SCH (08:11)
[2021-03-31] MEDS: BARICITINIB 2 MG TAB PO SCH (08:11)
[2021-03-31] MEDS: guaiFENesin ER 600 MG TAB PO SCH ×2 (08:11→21:37)
[2021-03-31] MEDS: Dexamethasone 4 mg/ml Vial SLOW IVP SCH (08:11)
[2021-03-31] MEDS: Folic Acid 1 MG TAB PO SCH (08:11)
[2021-03-31] MEDS: Ascorbic Acid 500 mg Chewable Tablet PO SCH (08:11)
[2021-03-31] MEDS: Enoxaparin Sodium 40 MG/0.4 ML SYRINGE SC SCH ×2 (08:12→21:39)
[2021-03-31] MEDS: HumaLOG 300 UNITS/3 ML VIAL SC PRN ×2 (12:09→17:09)
[2021-03-31] MEDS: Melatonin 3 MG TAB PO PRN ×2 (21:36)
[2021-04-01] MEDS: Albuterol 200 PUFF (6.7GM INHALER) INH SCH ×4 (01:00→19:47)
[2021-04-01] MEDS: hydrOXYzine 10 MG TAB PO PRN (02:10)
[2021-04-01] MEDS: Zinc Sulfate 220 MG CAP PO SCH (08:41)
[2021-04-01] MEDS: Enoxaparin Sodium 40 MG/0.4 ML SYRINGE SC SCH ×2 (08:41→20:33)
[2021-04-01] MEDS: Folic Acid 1 MG TAB PO SCH (08:41)
[2021-04-01] MEDS: Ascorbic Acid 500 mg Chewable Tablet PO SCH (08:41)
[2021-04-01] MEDS: Multivit, Therapeutic 1 TAB PO SCH (08:41)
[2021-04-01] MEDS: guaiFENesin ER 600 MG TAB PO SCH ×2 (08:42→20:33)
[2021-04-01] MEDS: Dexamethasone 4 mg/ml Vial SLOW IVP SCH (08:42)
[2021-04-01] MEDS: Cyanocobalamin (Vitamin B-12) 1,000 MCG TAB PO SCH (08:42)
[2021-04-01] MEDS ORDERED: Calcium Carbonate 500 MG ChewTAB PO PRN (11:07)
[2021-04-01] MEDS ORDERED: Cepastat Lozenges 1 LOZ PO PRN (11:07)
[2021-04-01] MEDS ORDERED: Ondansetron ODT 4 MG TAB PO PRN (11:07)
[2021-04-01] MEDS ORDERED: Sodium Chloride 0.65% Nasal 44 ML BOT EA NARE PRN (11:07)
[2021-04-01] MEDS ORDERED: GUAIFENESIN SF SOLN 200 MG/10 ML UDCUP PO PRN (11:07)
[2021-04-01] MEDS ORDERED: Loratadine 10 MG TAB PO PRN (11:07)
[2021-04-01] MEDS ORDERED: Hydrocerin (Eucerin) Cream 120 gm Jar TOP PRN (11:07)
[2021-04-01] MEDS ORDERED: Loperamide HCl 2 MG CAP PO PRN (11:07)
[2021-04-01] MEDS ORDERED: Benzonatate 100 MG CAP PO PRN (11:07)
[2021-04-01] MEDS ORDERED: hydrALAZINE 20 MG/ML VIAL SLOW IVP PRN (11:07)
[2021-04-01] MEDS: HumaLOG 300 UNITS/3 ML VIAL SC PRN ×2 (12:18→17:13)
[2021-04-01] MEDS: Acetaminophen 325 MG TAB PO PRN (20:35)
[2021-04-02] MEDS: hydrOXYzine 10 MG TAB PO PRN (01:49)
[2021-04-02 02:14] LABS: Actual Bicarbonate (HCO3a) 20.4 mEq/L (22-28); Base Excess (BEa) -3.7 mEq/L (-2.0 to +3.0); CO2 Tension 34.2 mmHg (35.0-45.0); Carboxyhemoglobin (COHb) 1.1 gm% (0.0-3.0); Potassium - ABG Lab 4.27 mmol/L (3.70-5.30); pH, Arterial 7.39 (7.35-7.45)
[2021-04-02 02:16] LABS: O2 Tension (PaO2), arterial 28.8 mmHg (> 60.0); Puncture Site RRA
[2021-04-02] MEDS ORDERED: Succinylcholine 200 MG/10 ml SYRINGE FS ONE (02:24)
[2021-04-02 02:31] LABS: #Lymphocytes 1.2 thou/uL (1.20-3.40); #Monocytes 0.3 thou/uL (0.11-0.59); #Neutrophils 12.6 thou/uL (1.40-6.50); %Basophils 0.1 % (0.0-1.0); %Eosinophils 0.3 % (0.0-10.0); %Lymphocytes 8.5 % (21.0-51.0); %Monocytes 1.8 % (0.0-10.0); %Neutrophils 89.3 % (42.0-75.0); Hemoglobin 14.3 g/dL (12.0-16.0); Mean Corpuscular HGB CONC 33.4 g/dL (32.0-36.0); Mean Corpuscular Hemoglobin 31.9 pg (27.0-31.0); Mean Corpuscular Volume 95.5 fL (78.0-98.0); Mean Platelet Volume 7.2 fL (7.4-10.4); Platelet Count 325 thou/uL (130-400); RBC Distribution Width 12.9 % (11.5-14.5); Red Blood Cell (RBC) Count 4.49 mill/uL (4.20-5.40); White Blood Cell (WBC) Count 14.2 thou/uL (4.8-10.8)
[2021-04-02] MEDS ORDERED: Morphine 4 MG/ML VIAL SLOW IVP PRN (02:45)
[2021-04-02] MEDS ORDERED: Ventilator Sedation Protocol 1 EACH FS SCH (02:45)
[2021-04-02] MEDS ORDERED: Lorazepam 2 MG/ML VIAL SLOW IVP PRN (02:45)
[2021-04-02] MEDS ORDERED: Propofol BOLUS 1,000 MG/100 ML VIAL IV PRN (02:45)
[2021-04-02] MEDS ORDERED: DISCONTINUE PREVIOUS NARCOTIC PAIN MEDICATIONS AND BENZODIAZEPINES FS SCH (02:45)
[2021-04-02] MEDS ORDERED: Fentanyl BOLUS 250 ML IVPB PRN (02:45)
[2021-04-02] MEDS ORDERED: fentaNYL Citrate-0.9 % NaCl/PF 100 ML IVPB SCH (02:45)
[2021-04-02] MEDS: Albuterol 200 PUFF (6.7GM INHALER) INH SCH (02:49)
[2021-04-02 02:59] LABS: ALT (SGPT) 37 U/L (8-55); AST (SGOT) 47 U/L (5-34); Albumin 3.1 g/dL (3.4-4.8); Alkaline Phosphatase 211 U/L (40-110); Anion Gap 17 mmol/L (10-20); BUN (Urea Nitrogen) 18 mg/dL (9.8-20.1); Bilirubin, Total 0.6 mg/dL (0.2-1.2); CRP (Inflammatory) 12.64 mg/dL (= or < 0.5); Calc. Creatinine Clearance 49 mL/min (70-130); Calcium 8.9 mg/dL (7.8-10.44); Carbon Dioxide 15 mmol/L (23-31); Chloride 109 mmol/L (98-107); Globulin 3.8 g/dL (2.4-3.5); Glucose 161 mg/dL (83-110); Magnesium 2.1 mg/dL (1.6-2.6); Phosphorus 2.9 mg/dL (2.3-4.7); Potassium 4.1 mmol/L (3.5-5.1); Protein, Total 6.9 g/dL (5.8-8.1); Sodium 137 mmol/L (136-145)
[2021-04-02] MEDS ORDERED: Albuterol 200 PUFF (6.7GM INHALER) INH PRN (03:12)
[2021-04-02] MEDS: Propofol 1,000 MG/100 ML VIAL IV PRN ×2 (03:34→15:04)
[2021-04-02 03:44] LABS: Actual Bicarbonate (HCO3a) 19.2 mEq/L (22-28); Base Excess (BEa) -5.9 mEq/L (-2.0 to +3.0); CO2 Tension 36.4 mmHg (35.0-45.0); Calcium, Ionized (arterial) 1.16 mmol/L (1.12-1.30); Carboxyhemoglobin (COHb) 0.9 gm% (0.0-3.0); Hemoglobin (Hb) 13.6 g/dL (12.0-16.0); O2 Tension (PaO2), arterial 89.7 mmHg (> 60.0); pH, Arterial 7.34 (7.35-7.45)
[2021-04-02 03:45] LABS: Puncture Site RBA
[2021-04-02] MEDS ORDERED: Piperacillin/Tazobactam 3.375 GM in Sodium Chloride 0.9% 100 ML IVPB SCH ×3 (03:45→08:00)
[2021-04-02] MEDS: Vecuronium 10 MG VIAL IV PRN ×2 (04:01→06:38)
[2021-04-02 04:21] LABS: Lactic Acid 1.9 mmol/L (0.5-2.2)
[2021-04-02] MEDS ORDERED: Albuterol 200 PUFF (6.7GM INHALER) INH SCH (06:30)
[2021-04-02 07:41] LABS: Actual Bicarbonate (HCO3a) 25.1 mEq/L (22-28); Base Excess (BEa) -7.4 mEq/L (-2.0 to +3.0); Calcium, Ionized (arterial) 1.24 mmol/L (1.12-1.30); Carboxyhemoglobin (COHb) 1.4 gm% (0.0-3.0); Hemoglobin (Hb) 13.7 g/dL (12.0-16.0); O2 Tension (PaO2), arterial 145.9 mmHg (> 60.0); Potassium - ABG Lab 3.95 mmol/L (3.70-5.30)
[2021-04-02 07:42] LABS: CO2 Tension 92.7 mmHg (35.0-45.0); Puncture Site RRA; pH, Arterial 7.05 (7.35-7.45)
[2021-04-02 07:43] LABS: ALV-art Gradient 451.225 mmHg (0-20)
[2021-04-02 07:57] VITALS: TEMP 99.5
[2021-04-02] MEDS ORDERED: Lactated Ringer's 1,000 ML IV SCH (08:15)
[2021-04-02] MEDS ORDERED: Sodium Chloride 0.9% 1,000 ML IV SCH (08:15)
[2021-04-02] MEDS: Zinc Sulfate 220 MG CAP PO SCH (08:54)
[2021-04-02] MEDS: guaiFENesin ER 600 MG TAB PO SCH (08:54)
[2021-04-02] MEDS: Ascorbic Acid 500 mg Chewable Tablet PO SCH (08:54)
[2021-04-02] MEDS: Enoxaparin Sodium 40 MG/0.4 ML SYRINGE SC SCH (08:54)
[2021-04-02] MEDS: Folic Acid 1 MG TAB PO SCH (08:54)
[2021-04-02] MEDS: Multivit, Therapeutic 1 TAB PO SCH (08:54)
[2021-04-02] MEDS ORDERED: Dexamethasone 4 mg/ml Vial SLOW IVP SCH (09:00)
[2021-04-02] MEDS ORDERED: Sodium Chloride 0.9% 500 ML IV SCH (10:00)
[2021-04-02] MEDS: Cyanocobalamin (Vitamin B-12) 1,000 MCG TAB PO SCH (10:54)
[2021-04-02 13:47] VITALS: BMI 23.9
[2021-04-02 15:26] VITALS: BP 81/48
[2021-04-03] MEDS ORDERED: Lansoprazole 3 MG/ML ORAL SUSPENSION PER TUBE SCH (09:00)
== END 2021-04-02 16:05 | disposition hospice, inpatient (51) | DRG 208 ==
LOC: ERS 07:24 → T4-B 12:28 → OBSVTOIN 12:28 → CCU 04-02 02:37
PROVIDERS: ADMIT Internal Medicine; ATTEND Internal Medicine
PROC: XW033E5 Introduction of Remdesivir Anti-infective into Peripheral Vein, Percutaneous Approach, New Technology Group 5 (ICD-10-PCS; principal; 2021-03-16)
PROC: 8E0ZXY6 Isolation (ICD-10-PCS; 2021-03-16)
PROC: 5A0955A Assistance with Respiratory Ventilation, Greater than 96 Consecutive Hours, High Flow/Velocity Cannula (ICD-10-PCS; 2021-03-17)
PROC: 0DH67UZ Insertion of Feeding Device into Stomach, Via Natural or Artificial Opening (ICD-10-PCS; 2021-03-17)
PROC: 3E0G76Z Introduction of Nutritional Substance into Upper GI, Via Natural or Artificial Opening (ICD-10-PCS; 2021-03-17)
PROC: XW0DXM6 Introduction of Baricitinib into Mouth and Pharynx, External Approach, New Technology Group 6 (ICD-10-PCS; 2021-03-18)
PROC: 5A0945A Assistance with Respiratory Ventilation, 24-96 Consecutive Hours, High Flow/Velocity Cannula (ICD-10-PCS; 2021-03-30)
PROC: 5A1935Z Respiratory Ventilation, Less than 24 Consecutive Hours (ICD-10-PCS; 2021-04-02)
PROC: 0BH17EZ Insertion of Endotracheal Airway into Trachea, Via Natural or Artificial Opening (ICD-10-PCS; 2021-04-02)
DX: U07.1 COVID-19 (principal); J12.82 Pneumonia due to coronavirus disease 2019; J96.01 Acute respiratory failure with hypoxia; E87.1 Hypo-osmolality and hyponatremia; E87.2 Acidosis; Z66 Do not resuscitate; Z51.5 Encounter for palliative care; E87.8 Other disorders of electrolyte and fluid balance, not elsewhere classified; E11.65 Type 2 diabetes mellitus with hyperglycemia; T38.0X5A Adverse effect of glucocorticoids and synthetic analogues, initial encounter; E87.6 Hypokalemia; R74.8 Abnormal levels of other serum enzymes; Z83.3 Family history of diabetes mellitus; Z98.890 Other specified postprocedural states; Z78.1 Physical restraint status
CPT/HCPCS: 36415; 36416; 36600; 71045; 71275; 74018; 80048; 80053; 80076; 82728; 82805; 83605; 83735; 83880; 84100; 84484; 85025; 85379; 86140; 93005; 93010; 94002; 94640; J0248; J1100; J1650; J1815; J2543; J2704; J3490; J7030; J7050; J7120; J7620; Q9967; U0002

== ENCOUNTER 2021-04-02 16:32 | Inpatient (IN) | payer OTHER ==
[2021-04-02] MEDS ORDERED: diphenhydrAMINE 25 MG CAP PO PRN (16:55)
[2021-04-02 16:58] VITALS: BP 55/32; TEMP 99.5
[2021-04-02] MEDS ORDERED: diphenhydrAMINE 50 MG/ML VIAL IVP PRN (16:58)
[2021-04-02] MEDS ORDERED: Lorazepam 2 MG/ML VIAL SLOW IVP PRN ×2 (16:59→17:10)
[2021-04-02] MEDS ORDERED: Lorazepam 2 MG/ML VIAL SLOW IVP SCH ×2 (17:00)
[2021-04-02] MEDS ORDERED: Morphine 4 MG/ML VIAL SLOW IVP SCH ×2 (17:00)
[2021-04-02] MEDS ORDERED: Haloperidol 1 MG TAB PO PRN (17:02)
[2021-04-02] MEDS ORDERED: Haloperidol Lactate 5 MG/ML VIAL SLOW IVP PRN ×2 (17:04→17:08)
[2021-04-02] MEDS ORDERED: Ondansetron PF 4 MG/2 ML Vial IVP PRN (17:08)
[2021-04-02] MEDS ORDERED: Dexamethasone 4 mg/ml Vial SLOW IVP PRN (17:09)
[2021-04-02] MEDS ORDERED: Atropine Sulfate 1% Ophth Soln 5 ml Bottle PO PRN (17:11)
[2021-04-02] MEDS ORDERED: Artificial Tear Sol 15 ML BOT EA EYE PRN (17:12)
[2021-04-02] MEDS ORDERED: Scopolamine 1.5 mg/72 hour Patch TOP SCH (17:15)
[2021-04-02] MEDS ORDERED: Bisacodyl 10 MG SUPP PR PRN (17:55)
[2021-04-02] MEDS ORDERED: BIOTENE MOUTH SPRAY 44.3 ML MM PRN (17:56)
[2021-04-03] MEDS ORDERED: Polyethylene Glycol 3350 17 GM Packet PO SCH (09:00)
== END 2021-04-02 18:33 | disposition expired | DRG 951 ==
LOC: CCU 16:32
PROVIDERS: ADMIT Internal Medicine Nephrology; ATTEND Internal Medicine Nephrology
DX: Z51.5 Encounter for palliative care (principal); U07.1 COVID-19; J96.01 Acute respiratory failure with hypoxia; J12.82 Pneumonia due to coronavirus disease 2019; Z66 Do not resuscitate
CPT/HCPCS: J2060; J2270